=== PATIENT | female | born 1965 | race Caucasian/White ===

== ENCOUNTER → 2016-12-16 | Outpatient (CLI) | payer MEDICARE, OTHER ==
[2016-08-28 09:38] VITALS: BP 151/67
[~2016-12-16] MED LIST: ALPR1TAB2 PO; BUDE10.2 IH; CYCL10TA2 PO; DULO60CA6 PO; GABA-586 PO; LORA10TA3 PO; OMEP20CA9 PO; OXYC-244 PO; OXYC-323 PO; PROAIR HFA8.5 GM IH; TIZA4TAB PO
--- NOTE | 2016-12-16 09:22 | RAD ---
PROCEDURE MRI lumbar spine without contrast. HISTORY Lumbar radiculopathy, chronic back pain TECHNIQUE Multiplanar, multi sequential non contrast MR imaging was performed of the lumbar spine COMPARISON December 06, 2009 FINDINGS Grade 1 anterior spondylolisthesis at L5-S1 is greater. There is bilateral L5 spondylolysis. There has been progression of moderate to severe degenerative disc disease at L5-S1, degenerative endplate change and endplate edema now present at this level. There is now posterior radial tear L5-S1. Lumbar vertebral body stature is adequate. There has been progression of mild disc desiccation at L3-4 and L4-5. There are posterior and anterior annular tears at L3-4. Conus terminates at L1. L3-4: Spinal canal and neural foramina are adequate. L4-5: Spinal canal and the neural foramina are adequate. L5-S1: There is partial uncovering of the posterior aspect of the disc due to spondylolisthesis with superimposed minimal disc osteophyte complex and bulge. Spinal canal is overall adequate, minimal transverse narrowing of the central canal. There is facet hypertrophic change. There is relative increased severe narrowing of the left neural foramen, moderate to severe narrowing on the right. IMPRESSION 1. There is increased grade 1 anterior spondylolisthesis at L5-S1, bilateral L5 spondylolysis. There has been progression of degenerative disc disease at L5-S1, increased degenerative endplate change and endplate edema likely reactive/degenerative in etiology. There is increased, left greater than right L5-S1 neural foramina compromise. Electronically signed by: Raymond Santana MD (Dec 16, 2016 09:20:25)
--- NOTE | 2016-12-16 09:28 | RAD ---
PROCEDURE MRI cervical spine without contrast. HISTORY Neck pain and radiculopathy TECHNIQUE Multiplanar, multi sequential non contrast MR imaging was performed the cervical spine. COMPARISON December 06, 2009 FINDINGS Cervical cord caliber is within normal limits. There is focus of increased T2 and STIR hyperintense signal of the cord at C6. Suggestion of mild increased STIR signal of the right lateral cord at T2 may be related to artifact from volume averaging although focus of cord signal abnormality possible. Cervical vertebral body stature and AP alignment are adequate. There is moderate degenerative disc disease at C5-C6 and to a somewhat lesser degree at C6-7 greater than previously. There is new degenerative endplate change at C6-7, new endplate edema at C5-C6. C2-3: Neural foramina and spinal canal are adequate. C3-C4: Spinal canal and the neural foramina are adequate. C4-C5: Spinal canal and the neural foramina are adequate. C5-C6: Disc osteophyte complex and bulge is greater. There is increased effacement of ventral subarachnoid space. Central canal is narrowed to approximately 7 millimeters, also lateral recess stenosis bilaterally somewhat greater on the left. There is mild to moderate narrowing of the left neural foramen greater proximally, right neural foramen overall adequate. C6-7: There is new minimal disc osteophyte complex and bulge. There is a greater degree of mild narrowing of the central canal to 7-8 millimeters. There is uncovertebral degenerative change greater on the left. Right neural foramen is adequate, moderate to severe narrowing of the left neural foramen greater than previously. C7-T1: Spinal canal and the neural foramina are adequate. IMPRESSION 1. There is increased spinal stenosis to 7-8 millimeters at C6-7, also somewhat increased spinal stenosis to 7 millimeters at C5-C6. 2. There is increased moderate to severe narrowing of the left C6-7 neural foramen, mild to moderate narrowing of the left C5-C6 neural foramen. 3. There is moderate degenerative disc disease at C5-C6 and to a somewhat lesser degree at C6-7, greater than previously. 4. There is a focus of non expansile signal abnormality of the anterior cord at C6 concerning for mild edema or myelomalacia given stenosis, less likely demyelination. Small focus of cord signal abnormality on the right at T2 cannot be excluded although possibly could be artifactual related to volume averaging, not fully included. Electronically signed by: Raymond Santana MD (Dec 16, 2016 09:26:54)
== END | disposition home or self-care (01) ==
LOC: MRI 07:53
PROVIDERS: ATTEND Family Medicine
DX: M54.16 Radiculopathy, lumbar region (principal); M54.12 Radiculopathy, cervical region; M48.02 Spinal stenosis, cervical region; M50.322 Other cervical disc degeneration at C5-C6 level; M50.323 Other cervical disc degeneration at C6-C7 level
CPT/HCPCS: 72141; 72148

== ENCOUNTER → 2017-01-02 | Outpatient (CLI) | payer MEDICARE, OTHER ==
[2016-08-28 09:38] VITALS: BP 151/67
--- NOTE | 2017-01-02 16:38 | RAD ---
Lumbar spine with upright lateral flexion and extension views, 4 views, 01/02/2017: History: Low back pain, spondylolisthesis The lumbar vertebral heights are well-maintained. There are mild scattered marginal spurs. There is moderate narrowing of the L5-S1 disc space. There is a grade 2 spondylolisthesis at L5-S1. There appears to be underlying spondylolysis at L5. The degree of spondylolisthesis does not appear to change significantly between the supine view or the upright flexion and extension views. Aortic calcific plaquing is present. IMPRESSION: 1. Bilateral spondylolysis at L5 with associated grade 2 spondylolisthesis at L5-S1. 2. Degenerative disc disease at L5-S1.
== END | disposition home or self-care (01) ==
LOC: RAD 15:39
PROVIDERS: ATTEND Neurological Surgery
DX: M51.37 Other intervertebral disc degeneration, lumbosacral region (principal)
CPT/HCPCS: 72110

== ENCOUNTER → 2017-01-27 | Outpatient (CLI) | payer MEDICARE, OTHER ==
[2016-08-28 09:38] VITALS: BP 151/67
--- NOTE | 2017-01-27 15:57 | EKG ---
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
[2017-01-27 16:06] LABS: BASO # 0.1 x10^3/uL (0.0-0.2); BASO % 1 % (0-3); EOS % 1 % (0-3); HEMATOCRIT 45.9 % (36.0-47.0); HEMOGLOBIN 15.3 g/dL (12.0-15.5); LYMPH # 2.6 x10^3/uL (1.0-4.8); LYMPH % 26 % (24-48); MEAN CORPUSCULAR HEMOGLOBIN 32 pg (25-35); MEAN CORPUSCULAR HGB CONC 33 g/dL (31-37); MEAN CORPUSCULAR VOLUME 95 fL (79-100); MONO % 6 % (0-9); NEUT % 67 % (31-73); PLATELET COUNT 262 x10^3/uL (140-400); RED BLOOD COUNT 4.84 x10^6/uL (3.50-5.40); RED CELL DISTRIBUTION WIDTH 14.6 % (11.5-14.5)
[2017-01-27 16:14] LABS: ALBUMIN/GLOBULIN RATIO 1.1 (1.0-1.7); CALCIUM 9.3 mg/dL (8.5-10.1); CREATININE 0.7 mg/dL (0.6-1.0); GFR 87.5; POTASSIUM 3.9 mmol/L (3.5-5.1); TOTAL BILIRUBIN 0.4 mg/dL (0.2-1.0); TOTAL PROTEIN 7.8 g/dL (6.4-8.2)
--- NOTE | 2017-01-27 16:31 | RAD ---
Indication tobacco use. Preop. Anticipated back surgery. Protocol study. PA and lateral views of the chest were obtained and are compared to a single view examination just over 2 years ago. The heart and pulmonary vessels appear normal. The lungs are clear. There is no pleural fluid or pneumothorax. A significant change compared to the prior study is not seen. IMPRESSION: No acute or focal process. No significant change
[2017-01-27 16:50] LABS: INR 1.1 (0.8-1.1); PROTHROMBIN TIME PATIENT 13.4 SEC (11.7-14.0)
== END | disposition home or self-care (01) ==
LOC: SURGPAT 15:03
PROVIDERS: ATTEND Neurological Surgery
DX: Z01.818 Encounter for other preprocedural examination (principal); Z72.0 Tobacco use
CPT/HCPCS: 36415; 71020; 80053; 85027; 85610; 85730; 87641; 93005

== ENCOUNTER → 2017-05-05 | Outpatient (CLI) | payer MEDICARE, MEDICAID ==
[2017-02-14 12:30] VITALS: BP 110/72
[~2017-05-05] MED LIST changes: +DOCU-109 PO; -OXYC-244 PO; +OXYC-327 PO
--- NOTE | 2017-05-05 16:21 | KCIC ---
Bilateral digital screening mammograms: Reason for examination: Routine screening. Comparison is made to previous studies dated 06/01/2015 and 02/02/2014. The skin and nipples show no abnormalities. No abnormal axillary lymph nodes are seen. The breast parenchyma shows scattered fibroglandular density. (Breast density: Category B.) There continues to be a nodular density at the 12:00 B position of the right breast which is unchanged. There is a intramammary lymph node at the 9:00 C position of the right breast which is unchanged. There are no new dominant masses, suspicious calcifications or architectural distortions. Benign calcifications are present. Biopsy clip remains present on the right. Impression: No evidence of malignancy. Recommend routine screening. BI-RADS category 2: Benign. "Our facility is accredited by the [employer] Mammography Program." This patient's information has been entered into a reminder system for the patient to be notified with the results of her examination and a target date for the next mammogram. Electronically signed by: Mireya Sotelo MD (05/05/2017 4:18 PM) [id number]
== END | disposition home or self-care (01) ==
LOC: KCIC MAMMO 14:46
PROVIDERS: ATTEND Family Medicine
DX: Z12.31 Encounter for screening mammogram for malignant neoplasm of breast (principal)
CPT/HCPCS: G0202; 77067

== ENCOUNTER → 2017-05-06 | Outpatient (CLI) | payer MEDICARE, MEDICAID ==
[2017-02-14 12:30] VITALS: BP 110/72
--- NOTE | 2017-05-06 12:41 | RAD ---
2 views lumbar spine compared to similar study dated January 02, 2017 for 6 weeks post lumbar fusion. Findings: There has been interval pedicle screw and [place] fixation of L5 and S1, with grade 2 anterolisthesis appearing subtly reduced compared to the preoperative imaging. Intervertebral disc spaces at other levels are well maintained. Mild atherosclerotic calcifications of the aorta are seen. No fracture or acute osseous abnormality is seen. Impression: 1. Postsurgical changes at L5-S1 with persistent but slightly improved spondylolisthesis.
== END | disposition home or self-care (01) ==
LOC: RAD 09:11
PROVIDERS: ATTEND Neurological Surgery
DX: M43.17 Spondylolisthesis, lumbosacral region (principal); I70.0 Atherosclerosis of aorta; Z98.1 Arthrodesis status
CPT/HCPCS: 72100